=== PATIENT | male | born 1935 | race Caucasian/White ===

== ENCOUNTER → 2016-10-28 | Outpatient (CLI) | payer OTHER, BC ==
[2016-10-28 13:56] LABS: HEMATOCRIT 42.9 % (42.0-52.0); HEMOGLOBIN 14.5 g/dL (14.0-18.0); MEAN CORPUSCULAR HEMOGLOBIN 28.8 PG (27-31); MEAN CORPUSCULAR HGB CONC 33.8 g/dL (33-37); MEAN CORPUSCULAR VOLUME 85.3 FL (80-90); RED BLOOD COUNT 5.03 10^6/uL (4.70-6.10)
[2016-10-28 14:20] LABS: BUN/CREATININE RATIO 22.72 (6-20); CALCIUM 9.4 mg/dL (8.7-10.7); SERUM ALBUMIN 3.9 g/dL (3.5-4.8)
== END ==
LOC: LAB 13:40
PROVIDERS: ATTEND Surgery
DX: C18.2 Malignant neoplasm of ascending colon (principal)
CPT/HCPCS: 36415; 80053; 82378; 85027